=== PATIENT | male | born 1995 ===

== ENCOUNTER 2023-02-17 11:32 | Inpatient (IN) | payer OTHER, MEDICAID, SELFPAY ==
--- NOTE | ~2023-02-17 | US_ITS ---
EXAMINATION: US ABDOMEN LIMITED CLINICAL INFORMATION: Right upper quadrant abdominal pain. COMPARISON: None available. TECHNIQUE: Real-time imaging of the right upper quadrant abdominal viscera. FINDINGS: LIVER: Visualized portions unremarkable. GALLBLADDER: Multiple small dependent gallstones are seen without mural thickening or pericholecystic fluid. COMMON BILE DUCT: Normal in caliber measuring 0.4 cm in diameter. US/US abdomen limited IMPRESSION: Cholelithiasis without evidence for acute cholecystitis.
[2023-02-17 11:42] VITALS: BP 143/90; PULSE 70; RESP 16; TEMP 36.4; O2SAT 98; BMI 34.7
--- NOTE | 2023-02-17 11:44 | ED_ITS ---
HPI - General Adult General Chief complaint: Abdominal Pain Stated complaint: abd pain, gallbladder stones Time Seen by Provider: 02/17/23 16:04 Source: patient Mode of arrival: ambulatory Limitations: no limitations History of Present Illness HPI narrative: Patient high function autism otherwise healthy since last night 03:00 been having upper abdominal pain more on the right side without nausea vomiting able to eat anything since that time patient was seen at [facility] hospital was suppose to follow up as outpatient with surgeon when he saw the surgeon prior to arrival who does not take his insurance [place] [facility] [place] Patient still complaining of pain in the right upper abdomen with nausea. No fever no chills no history of similar pain in the past labs and ultrasound done before my evaluation shows gallstones without any signs of cholecystitis labs were stable patient is still complaining of pain and does not feel comfortable to go home Related Data Home Medications Medication Instructions Recorded Confirmed No Known Home Meds 02/17/23 02/17/23 Allergies Allergy/AdvReac Type Severity Reaction Status Date / Time citalopram [From CELEXA] Allergy Mild RASH Verified 02/17/23 11:46 Review of Systems Review of Systems: Yes all other systems are reviewed and are negative [facility] Social History Social History Alcohol intake: never Smoked in Last 30 Days: No Use of substances other than those prescribed or required for medical reasons: No Advance Directives: No Advance Directives Information Provided: No Physical Exam ED Vital Signs: Vital Signs - 24 hr 02/17/23 11:42 02/17/23 15:50 02/17/23 17:31 Temperature 97.6 F 98.4 F 99.4 F Pulse Rate 70 72 80 Respiratory Rate 16 18 20 Blood Pressure 143/90 H 137/80 129/74 Pulse Oximetry 98 99 100 Oxygen Delivery Method Room Air Room Air Room Air BMI result Body Mass Index 34.7 Appearance: Alert. Oriented X3. No acute distress. Eyes: No pallor or icterus ENT: Pharynx normal. Oral Mucosa moist Neck: Normal inspection. Neck supple. CVS: Normal heart rate and rhythm. Pulses normal. Respiratory: No respiratory distress. Equal air entry bilateral, no wheezing/rales/rhonchi Abdomen: Soft, tenderness right upper quadrant with guarding no rebound tenderness Bowel sounds are present, no mass palpable, no CVA tenderness Skin: Skin warm and dry. Normal skin color. Normal skin turgor. Neuro: Oriented X 3. No motor deficit. Course Course Course Narrative: This is an RME: Additional HPI, ROS, PE not included below will be deferred to primary provider. 27 year old male with a past medical history og gallstones and obesity presents with right upper quadrant pain described as intermittent stabbing Pain 7/10. Was told last night he had gallstones and needs his gallbladder out. Went to see surgeon today however they did not take his insurance. Patient not tolerating pain. Plan: pain meds, labs, will request records from [facility]. [facility]. Medications Administered Discontinued Medications Generic Name Dose Route Start Last Admin Trade Name Freq PRN Reason Stop Dose Admin Sodium Chloride 1,000 mls @ 999 mls/hr 02/17/23 12:00 02/17/23 16:27 Ns IV 02/17/23 13:00 Not Given .Q1H1M FLAQUITO Sodium Chloride 1,000 mls @ 999 mls/hr 02/17/23 16:24 02/17/23 17:45 Ns IV 02/17/23 17:24 Infused .Q1H1M ONE Infusion Ketorolac Tromethamine 30 mg 02/17/23 11:46 02/17/23 16:38 Ketorolac Tromethamine 15 Mg/Ml Vial IVPUSH 02/17/23 11:47 30 mg ONCE ONE Administration Ondansetron HCl 4 mg 02/17/23 16:24 02/17/23 16:38 Ondansetron Hcl 4 Mg/2 Ml Vial IVPUSH 02/17/23 16:25 4 mg ONCE ONE Administration Medical Decision Making Medical Decision Making [facility] Narrative: Patient with acute biliary colic not comfortable far past 12 hours workup showed gallstone with cholecystitis case discussed with , surgeon agreed will keep the patient the hospital for cholecystectomy in the a.m. for ongoing abdominal pain Lab Data [facility] Lab Attestation statement: I reviewed the patient's lab results. 02/17/23 12:22 02/17/23 12:22 Labs: Lab Results 02/17/23 02/17/23 Range/Units 12:22 12:22 WBC 8.2 (4.8-10.8) X10*3/uL RBC 5.90 H (4.60-5.80) X10*6/uL Hgb 12.5 L (14.0-18.0) g/dl Hct 41.7 L (42.0-52.0) % MCV 70.7 L (80.0-98.0) fL MCH 21.2 L (27.0-33.0) pg MCHC 30.0 L (31.0-36.0) g/dl RDW 14.4 (11.0-16.0) % Plt Count 214 (160-400) X10*3/uL MPV 12.2 (9.4-12.4) fL Immature Gran % (Auto) 0.5 H (0.0-0.4) % Neut % (Auto) 84.4 H (45-73) % Lymph % (Auto) 10.6 L (20-40) % Burnett % (Auto) 4.4 (2-11) % Eos % (Auto) 0.0 (0-4) % Baso % (Auto) 0.1 (0-2) % Lymph # (Auto) 0.9 L (1.2-4.9) X10*3/uL Burnett # (Auto) 0.4 (0.1-1.2) X10*3/uL Eos # (Auto) 0.0 (0.0-0.4) X10*3/uL Baso # (Auto) 0.0 (0.0-0.2) X10*3/uL Abs Immat Gran (auto) 0.04 H (0.00-0.03) X10*3/uL Absolute Neuts (auto) 6.9 (2.0-8.3) x10*3/uL Absolute Nucleated RBC 0.000 (0.0-0.012) X10*3/uL Nucleated RBC % (auto) 0.0 (0.0-0.2) /100WBC Sodium 139 (135-145) mmol/L Potassium 4.2 (3.3-5.1) mmol/L Chloride 106 (96-108) mmol/L Carbon Dioxide 26 (22-29) mmol/L Anion Gap 11 L (12-20) BUN 10 (9-16) mg/dL Creatinine 0.87 (0.5-1.4) mg/dL Estim Creat Clear Calc 170.7 Estimated GFR > 60 Random Glucose 123 H (60-115) mg/dL Calcium 9.6 (8.4-10.2) mg/dL Magnesium 2.0 (1.6-2.6) mg/dL Total Bilirubin 0.5 (0.0-1.0) mg/dL AST 30 (5-37) U/L ALT 62 H (0-40) U/L Alkaline Phosphatase 59 (39-117) U/L Total Protein 7.9 (6.5-8.0) g/dL Albumin 4.7 (3.5-5.0) g/dL Lipase 11 (8-78) U/L Radiology Impression Discussion of test interpretation with radiology: I have reviewed the rad iologist's reading. Radiologist Impression: CLINICAL INFORMATION: Right upper quadrant abdominal pain. COMPARISON: None available. TECHNIQUE: Real-time imaging of the right upper quadrant abdominal viscera. FINDINGS: LIVER: Visualized portions unremarkable. GALLBLADDER: Multiple small dependent gallstones are seen without mural thickening or pericholecystic fluid. COMMON BILE DUCT: Normal in caliber measuring 0.4 cm in diameter. US/US abdomen limited IMPRESSION: Cholelithiasis without evidence for acute cholecystitis. Discharge Plan Discharge Clinical Impression: Biliary colic Patient Disposition: Admitted As Inpatient
[2023-02-17 12:27] LABS: MANUAL DIFF FLAG NO
[2023-02-17 12:34] LABS: Basophils Percent Auto 0.1 % (0-2); Hematocrit 41.7 % (42.0-52.0); Hemoglobin 12.5 g/dl (14.0-18.0); Imm Gran Abs Auto 0.04 X10*3/uL (0.00-0.03); Imm Gran Pct Auto 0.5 % (0.0-0.4); Lymphocytes Absolute Auto 0.9 X10*3/uL (1.2-4.9); Lymphocytes Percent Auto 10.6 % (20-40); Mean Corpuscular Hemoglobin 21.2 pg (27.0-33.0); Mean Corpuscular Volume 70.7 fL (80.0-98.0); Mean Platelet Volume 12.2 fL (9.4-12.4); Monocytes Absolute Auto 0.4 X10*3/uL (0.1-1.2); Monocytes Percent Auto 4.4 % (2-11); Neutrophils Absolute Auto 6.9 x10*3/uL (2.0-8.3); Neutrophils Percent Auto 84.4 % (45-73); Platelet Count 214 X10*3/uL (160-400); Red Cell Distribution Width 14.4 % (11.0-16.0); White Blood Count 8.2 X10*3/uL (4.8-10.8)
[2023-02-17 12:43] LABS: Alanine Aminotransferase 62 U/L (0-40); Albumin Level 4.7 g/dL (3.5-5.0); Alkaline Phosphatase 59 U/L (39-117); Anion Gap 11 (12-20); Aspartate Amino Transferase 30 U/L (5-37); Bilirubin Total 0.5 mg/dL (0.0-1.0); Blood Urea Nitrogen 10 mg/dL (9-16); Calcium 9.6 mg/dL (8.4-10.2); Carbon Dioxide 26 mmol/L (22-29); Chloride 106 mmol/L (96-108); Creatinine Clr Calc Pharmacy 170.7; Estimated Glomerular Filt Rate > 60; Glucose Random 123 mg/dL (60-115); Lipase 11 U/L (8-78); Potassium 4.2 mmol/L (3.3-5.1); Sodium 139 mmol/L (135-145); Total Protein 7.9 g/dL (6.5-8.0)
[2023-02-17 15:50] VITALS: BP 137/80; PULSE 72; RESP 18; TEMP 36.9; O2SAT 99
--- NOTE | 2023-02-17 15:58 | PC.NURSE ---
pt just came in from waiting room to bed 13. eval by rn- medications ordered by PIT earlier today- awaiting primary eval from ed provider before administration.
[2023-02-17] MEDS: ondansetron HCL 4 MG/2 ML VIAL IVPUSH (16:38)
[2023-02-17] MEDS: Ketorolac Tromethamine 15 MG/ML VIAL 30 MG IVPUSH (16:38)
[2023-02-17] MEDS: 0.9 % Sodium Chloride 1,000 ML 999 ML IV (16:38)
--- NOTE | 2023-02-17 17:21 | PHA.MEDREC ---
Pharmacy Consult ? Medication Reconciliation Pharmacy has completed the medication reconciliation. Pt confirmed he is on no prescription or otc medications at home.
[2023-02-17 17:31] VITALS: BP 129/74; PULSE 80; RESP 20; TEMP 37.4; O2SAT 100
[2023-02-17 19:27] VITALS: BP 130/75; PULSE 79; RESP 18; TEMP 37.2; O2SAT 98
[2023-02-17] MEDS: ceFAZolin Sodium/Dextrose,Iso 2 GM/50 ML PIGGYBACK IV (20:16)
[2023-02-17] MEDS: Dextrose 5 % and 0.45 % NaCl 1,000 ML 100 ML IVCONT (20:18)
--- NOTE | 2023-02-17 20:27 | PC.NURSE ---
attempted to call nurse to nurse report x 1 @20:15. waiting for nurse to call back for report . pt resting comfortably on stretcher. iv fluids started. pt reports pain is now mild. no nausea or vomiting. mom at bedside will CTM
--- NOTE | 2023-02-17 20:51 | PC.NURSE ---
nurse to nurse report x 2 attempted @20:50. no answer. waiting for call back .
[2023-02-17 21:24] VITALS: BP 109/55; PULSE 79; RESP 20; TEMP 36.1; O2SAT 95
[2023-02-17 22:01] VITALS: BMI 40.4
[2023-02-18] VITALS (12 sets, daily range): BP systolic 99–154; BP diastolic 54–89; PULSE 73–92; RESP 16–20; TEMP 36.4–37.2; O2SAT 90–99
[2023-02-18] MEDS: ceFAZolin Sodium/Dextrose,Iso 2 GM/50 ML PIGGYBACK IV (03:00)
[2023-02-18] MEDS: Dextrose 5 % and 0.45 % NaCl 1,000 ML 100 ML IVCONT ×2 (05:48→15:59)
[2023-02-18 08:57] LABS: Appearance Urine Clear; Color Urine Yellow; Glucose Urine UA Negative (Negative); Leukocyte Esterase Urine Negative (Negative); Nitrite Urine Negative (Negative); PH 6.5 (5.0-9.0); Specific Gravity - Urine >= 1.030 (1.005-1.025); Urine Blood Negative (Negative); Urine Ketones Trace mg/dL (Negative); Urine Protein Trace mg/dL (Neg-Trace)
--- NOTE | 2023-02-18 09:16 | PM.HPGS ---
History of Present Illness History of Present Illness Date of Service: 02/18/23 Chief complaint: acute gb Narrative: Ed Deven Garcia is a 27 year old male with autism who developed RUQ abdominal pain on Tuesday night. It was sharp and stabbing in nature. He reports nausea without vomiting. He denies fever or chills at home. He presented to the ED at [facility] who did a work up and told him he had gallstones and sent him home with referral to see a surgeon. He saw the surgeon yesterday and was told they didn't take his insurance. Due to the persistence of the pain, he came to [facility] [place] ED. Work up included ABD US which showed gallstones without gallbladder wall thickening or pericholecystic fluid. CBC, BMP, LFTs WNL. He continued to complain of pain despite pain medication and did not feel comfortable going home. He was therefore admitted to the surgical service. This morning, he feels somewhat improved but still c/o mild RUQ pain. He denies previous episodes of similar pain. Review of Systems Constitutional: Constitutional: Denies chills and Denies fever(s) ENT: Denies dizziness Cardiovascular: Cardiovascular: Denies chest pain and Denies dyspnea Respiratory: Respiratory: Denies cough and Denies dyspnea Gastrointestinal: Gastrointestinal: Reports as per HPI, Denies constipation, Denies diarrhea, Reports nausea and Denies vomiting Genitourinary: Genitourinary: Denies dysuria Integumentary/Breasts: Skin/Breast: Denies rash and Denies jaundice Neurologic: Denies dizziness [facility] Social History Social History Household Members: None Housing: Apartment Do you presently have visiting nurse or other home services: No Alcohol intake: never Patient Tobacco Use Status: Never used Tobacco Smoked in Last 30 Days: No e-Cigarette/Vaping Use: Never Used Use of substances other than those prescribed or required for medical reasons: No Currently Displaying Signs/Symptoms of Drug Intoxication Withdrawal: No Have you been hit, kicked, punched, or otherwise hurt by someone within the past year? If so, by whom?: No Do you feel safe in your current relationship?: Yes Is there a partner from a previous relationship who is making you feel unsafe now?: No Are you made to feel afraid or neglected: No Advance Directives: No Advance Directives Information Provided: No Do you have thoughts of harming others: None Do you have a plan to hurt others: No Plan Recently lost weight without trying: No Eating poorly because of decreased appetite: No Nutrition Risks: No Nutritional Risk Poor oral hygiene: No Meds Allergies Allergy/AdvReac Type Severity Reaction Status Date / Time citalopram [From CELEXA] Allergy Mild RASH Verified 02/17/23 11:46 Active Medications: Current Medications Acetaminophen (Acetaminophen 325 Mg Tablet) 650 mg PO Q6H PRN PRN Reason: Pain, Mild (Pain Scale 1-3) Al Hydroxide/Mg Hydroxide (Magnesium Hydrox/Alum Hydrox 30 Ml Oral.Susp) 30 ml PO Q4H PRN PRN Reason: Heartburn/Nausea Hydromorphone HCl (Hydromorphone Hcl 1 Mg/Ml Syringe) 0.5 mg IVPUSH Q4H PRN; Protocol PRN Reason: Pain, Severe (Pain Scale 7-10) Dextrose/Sodium Chloride (D51/2ns) 1,000 mls @ 100 mls/hr IVCONT .Q10H [facility] Last Admin: 02/18/23 05:48 Dose: 100 mls/hr Cefazolin Sodium/Dextrose (Ancef) 2 gm in 50 mls @ 100 mls/hr IV Q8H [facility] Last Infusion: 02/18/23 03:55 Dose: Infused Magnesium Hydroxide (Milk Of Magnesia 30 Ml Oral.Susp) 30 ml PO DAILY PRN PRN Reason: Constipation Ondansetron HCl (Ondansetron Hcl 4 Mg/2 Ml Vial) 4 mg IVPUSH Q8H PRN PRN Reason: Nausea and Vomiting Sodium Chloride (0.9 % Sodium Chloride Flush 3 Ml Syringe) 3 ml IVFLUSH QSHIFT [facility] Last Admin: 02/18/23 07:50 Dose: Not Given Home Medications Medication Instructions Recorded Confirmed Last Taken Type No Known Home Meds 02/17/23 02/17/23 Unknown History Physical Exam Vital Signs: Vital Signs: Last Vital Signs Temp 98.5 F 02/18/23 07:49 Pulse 74 02/18/23 07:49 Resp 19 02/18/23 07:49 BP 112/62 02/18/23 07:49 Pulse Ox 97 02/18/23 07:49 O2 Del Method Room Air 02/18/23 07:49 BMI result Body Mass Index 40.4 Const: General: comfortable, no acute distress and alert Orientation/consciousness: patient oriented x3 Resp: Effort & Inspection: normal respiratory effort Cardio: Rate: regular rate GI: Inspection: No distended, Yes obesity (corpulent abdomen) and No scar Palpation (GI): Soft to palpation, Tenderness to palpation present (GI) in the RUQ and Ramirez's sign positive, no guarding and not rigid Percussion: Yes normal to percussion Skin: General skin exam: no rashes or lesions noted Neuro: General: patient oriented x3 and moves all extremities Extrem: General: Yes no clubbing, cyanosis or edema Results Results Labs: Short CBC 02/17/23 Range/Units 12:22 WBC 8.2 (4.8-10.8) X10*3/uL Hgb 12.5 L (14.0-18.0) g/dl Hct 41.7 L (42.0-52.0) % Plt Count 214 (160-400) X10*3/uL BMP 02/17/23 12:22 Sodium 139 Potassium 4.2 Chloride 106 Carbon Dioxide 26 BUN 10 Creatinine 0.87 Calcium 9.6 Liver Function 02/17/23 Range/Units 12:22 Total Bilirubin 0.5 (0.0-1.0) mg/dL AST 30 (5-37) U/L ALT 62 H (0-40) U/L Alkaline Phosphatase 59 (39-117) U/L Albumin 4.7 (3.5-5.0) g/dL Urine 02/18/23 Range/Units Unknown Urine Color Yellow Urine Appearance Clear Urine pH 6.5 (5.0-9.0) Ur Specific [place] >= 1.030 H (1.005-1.025) Urine Protein Trace (Neg-Trace) mg/dL Urine Glucose (UA) Negative (Negative) mg/dL Assessment and Plan (1) Biliary colic: Status: Acute Plan 27 year old male with c/o RUQ abdominal pain and nausea for 2 days with US demonstrating gallstones without signs of cholecystitis. He however has continued pain with RUQ tenderness and positive ramirez's sign which suggests early acute cholecystitis. Risks, benefits, alternatives of laparoscopic possible open cholecystectomy were reviewed with the patient including but not limited to bleeding, infection, numbness, pain, poor healing, injury to the liver, bowel or bile ducts, leak, retained stones and the patient wishes to proceed.? He was added onto the OR schedule for today.?All questions were answered. Time Spent With Patient Time: Total time managing care of this patient today ____ minutes. Quality Stroke Does the patient have a stroke diagnosis?: No VTE Prior VTE?: No VTE Risk Level:: Surgical - low VTE Device Contraindication: Treatment Not Indicated VTE Drug Contraindication: Treatment Not Tolerated Procedures Date of Service Date of Service: 02/18/23
--- NOTE | 2023-02-18 11:47 | HO.ANESPROP2 ---
HPI - Anesthesia Eval Consult details Narrative: for lachelle MORLEY Active Problems Active Problems: All Active Problems (Updated 02/18/23 @ 11:43 by Elisabet Blackburn RN) Biliary colic (Acute) Past Medical History Medical History Autism Family History Family history of problems with anesthesia: No Surgical History Surgical History Hx of wisdom tooth extraction History of Problems with Anesthesia: No Social History Social History Household Members: None Housing: Apartment Do you presently have visiting nurse or other home services: No Alcohol intake: never Patient Tobacco Use Status: Never used Tobacco Smoked in Last 30 Days: No e-Cigarette/Vaping Use: Never Used Use of substances other than those prescribed or required for medical reasons: No Currently Displaying Signs/Symptoms of Drug Intoxication Withdrawal: No Have you been hit, kicked, punched, or otherwise hurt by someone within the past year? If so, by whom?: No Do you feel safe in your current relationship?: Yes Is there a partner from a previous relationship who is making you feel unsafe now?: No Are you made to feel afraid or neglected: No Are you DNR?: No Advance Directives: No Advance Directives Information Provided: No Do you have thoughts of harming others: None Do you have a plan to hurt others: No Plan Recently lost weight without trying: No Eating poorly because of decreased appetite: No Nutrition Risks: No Nutritional Risk Poor oral hygiene: No Meds Allergies Allergy/AdvReac Type Severity Reaction Status Date / Time citalopram [From CELEXA] Allergy Mild RASH Verified 02/18/23 11:37 Active Medications: Current Medications Acetaminophen (Acetaminophen 325 Mg Tablet) 650 mg PO Q6H PRN PRN Reason: Pain, Mild (Pain Scale 1-3) Al Hydroxide/Mg Hydroxide (Magnesium Hydrox/Alum Hydrox 30 Ml Oral.Susp) 30 ml PO Q4H PRN PRN Reason: Heartburn/Nausea Hydromorphone HCl (Hydromorphone Hcl 1 Mg/Ml Syringe) 0.5 mg IVPUSH Q4H PRN; Protocol PRN Reason: Pain, Severe (Pain Scale 7-10) Dextrose/Sodium Chloride (D51/2ns) 1,000 mls @ 100 mls/hr IVCONT .Q10H [facility] Last Admin: 02/18/23 05:48 Dose: 100 mls/hr Cefazolin Sodium/Dextrose (Ancef) 2 gm in 50 mls @ 100 mls/hr IV Q8H [facility] Last Infusion: 02/18/23 03:55 Dose: Infused Magnesium Hydroxide (Milk Of Magnesia 30 Ml Oral.Susp) 30 ml PO DAILY PRN PRN Reason: Constipation Ondansetron HCl (Ondansetron Hcl 4 Mg/2 Ml Vial) 4 mg IVPUSH Q8H PRN PRN Reason: Nausea and Vomiting Sodium Chloride (0.9 % Sodium Chloride Flush 3 Ml Syringe) 3 ml IVFLUSH QSHIFT [facility] Last Admin: 02/18/23 07:50 Dose: Not Given Home Medications Medication Instructions Recorded Confirmed Last Taken Type No Known Home Meds 02/17/23 02/17/23 Unknown History Exam Exam Date and Time: February 18, 2023 1147 Height,Weight and Vital Signs: Height 6 ft Weight 135 kg Last Vital Signs Temp 98.0 F 02/18/23 11:44 Pulse 73 02/18/23 11:44 Resp 18 02/18/23 11:44 BP 116/84 02/18/23 11:44 Pulse Ox 98 02/18/23 11:44 O2 Del Method Room Air 02/18/23 11:44 Pertinent Lab Results Pertinent Lab Results: Laboratory Tests 02/17/23 02/17/23 02/18/23 12:22 12:22 Unknown WBC 8.2 RBC 5.90 H Hgb 12.5 L Hct 41.7 L MCV 70.7 L MCH 21.2 L MCHC 30.0 L RDW 14.4 Plt Count 214 MPV 12.2 Immature Gran % (Auto) 0.5 H Neut % (Auto) 84.4 H Lymph % (Auto) 10.6 L Jerome % (Auto) 4.4 Eos % (Auto) 0.0 Baso % (Auto) 0.1 Lymph # (Auto) 0.9 L Jerome # (Auto) 0.4 Eos # (Auto) 0.0 Baso # (Auto) 0.0 Abs Immat Gran (auto) 0.04 H Absolute Neuts (auto) 6.9 Absolute Nucleated RBC 0.000 Nucleated RBC % (auto) 0.0 Sodium 139 Potassium 4.2 Chloride 106 Carbon Dioxide 26 Anion Gap 11 L BUN 10 Creatinine 0.87 Estim Creat Clear Calc 170.7 Estimated GFR > 60 Random Glucose 123 H Calcium 9.6 Magnesium 2.0 Total Bilirubin 0.5 AST 30 ALT 62 H Alkaline Phosphatase 59 Total Protein 7.9 Albumin 4.7 Lipase 11 Urine Color Yellow Urine Appearance Clear Urine pH 6.5 Ur Specific [place] >= 1.030 H Urine Protein Trace Urine Glucose (UA) Negative Urine Ketones Trace Urine Blood Negative Urine Nitrite Negative Ur Leukocyte Esterase Negative Airway Mallampati Class: II TM Dist: >3cm Neck ROM: Full Heart: rrr Lungs: cta Assessment and Plan Assessment Anesthesia Assessment: Anesthesia Plan Discussed Final Anesthetic Review Family History of Problems with Anesthesia: No History of Problems with Anesthesia: No NPO: Yes ASA Class: II Final Preanesthetic Review: No Changes in Pt Med Stat, Meds/Allgs Chart Reviewed, Consent Obtained/Reviewed and Anes Risks/Benef Reviewed Patient Risk: Intermediate Procedure Risk: Intermediate Anesthetic Plan Anesthetic Plan: GA Disposition: Standard PACU (pt autistic , mom signed consent)
--- NOTE | 2023-02-18 12:11 | PC.NURSE ---
dr. vasquez updated that cefazolin 2 gm IV ordered by him was given on floor at 0355. new order placed for surgery per dr. vasquez.
--- NOTE | 2023-02-18 13:23 | W.PM.OPN ---
Operative Note Operative Note Date of Service: 02/18/23 Narrative: Preoperative diagnosis: [] Acute cholecystitis Postop diagnosis: [] Acute cholecystitis, hydrops of gallbladder Procedure [] laparoscopic cholecystectomy Surgeon: [] Rich Seo [employer] Specialist: [] kiara Acosta Type of Anesthesia: [] General Indication for surgery: [] Hydrops of gallbladder. Markedly edematous inflamed gallbladder with omental adhesions to it. Findings: [] Patient brought to the operating room, placed on the operating table in supine position, after adequate level of general anesthesia was induced, the patient's abdomen which was moderately corpulent was prepped and draped in usual sterile fashion. Using a supraumbilical curvilinear incision, Robles technique was used to insufflate the abdominal cavity to 15 mm of CO2. Upper midline and right subcostal ports were placed under direct laparoscopic view, and the patient was placed in reverse Trendelenburg position, and tilted to the left. The markedly turgid gallbladder was initially aspirated for decompression to allow graspers to grab it. Gallbladder was then grasped and retracted superiorly and laterally. Soft omental adhesions were swept off the gallbladder was hilum was approached. The cystic artery and cystic duct were each identified, circumferentially skeletonized and traced directly into the gallbladder and critical view obtained. Each was clipped proximally x2, distally x1, and transected. Gallbladder was then cauterized from the gallbladder fossa. Small posterior descending arterial branch well up into the gallbladder fossa was identified and clipped. Gallbladder once completely excised the gallbladder fossa was placed in an Endo-Catch bag, a retrieved through the umbilical port. Abdominal cavity was copiously irrigated, and secured hemostasis. Wounds were closed in the following manner; umbilical wound has fascia reapproximated using interrupted 0 Vicryl sutures. Skin wounds were closed using subcuticular 4-0 Vicryl sutures followed by Steri-Strips and sterile dressings. Wounds were infiltrated 0.5% Marcaine at completion. Sponge, needle, and instrument counts were reported to be correct. Patient tolerated the procedure well and emerged anesthesia stable condition. EBL minimal
--- NOTE | 2023-02-18 13:52 | PC.NURSE ---
preop vs written on preop nursing record.
[2023-02-18] MEDS: 0.9 % Sodium Chloride Flush 3 ML SYRINGE IVFLUSH (15:56)
--- NOTE | 2023-02-18 16:01 | MHC.CM.PN ---
CM MET WITH PT AND MOTHER/GUARDIAN AT BEDSIDE PT LIVES ALONE AND IS INDEPENDENT WITH SELF CARE HE HAS NO HOME SERVICES OR DME PTS MOTHER REPORTS SHE IS HIS LEGAL GUARDIAN SHE REPORTS SHE RECENTLY LEARNED HIS PCP. DR QUINONEZ NO LONGER TAKES THE PTS INSURANCE SHE WAS GIVEN EDUCATION ALONG WITH A LIST OF PCPS AND THE HELP [address] PT WILL LIKELY DC TODAY ONCE HE IS ABLE TO EAT AND VOID MOTHER WILL TRANSPORT
--- NOTE | 2023-02-21 10:00 | PM.DS ---
DS: Providers Provider Date of Service: 02/18/23 Date of admission: 02/17/23 19:04 Date of discharge: 02/18/23 Primary care physician: Lisa Physician Attending physician on admission: Cricket Villanueva Attending physician on discharge: Cricket Villanueva DS: Diagnosis Discharge Diagnosis (1) Biliary colic: Status: Acute DS: Summary Hospital Course Hospital Course: HPI AT ADMISSION: Ed Deven Garcia is a 27 year old male with autism who developed RUQ abdominal pain on Tuesday night. It was sharp and stabbing in nature. He reports nausea without vomiting. He denies fever or chills at home. He presented to the ED at [facility] who did a work up and told him he had gallstones and sent him home with referral to see a surgeon. He saw the surgeon yesterday and was told they didn't take his insurance. Due to the persistence of the pain, he came to [facility] ED. Work up included ABD US which showed gallstones without gallbladder wall thickening or pericholecystic fluid. CBC, BMP, LFTs WNL. He continued to complain of pain despite pain medication and did not feel comfortable going home. He was therefore admitted to the surgical service. This morning, he feels somewhat improved but still c/o mild RUQ pain. He denies previous episodes of similar pain. HOSPITAL COURSE: He was admitted to the surgical service for further treatment of the acute cholecystitis. He had continued pain the following morning and it was recommended to proceed with laparoscopic cholecystectomy, possible open. He and his mother agreed. He was added onto the OR schedule for that day. On 02/18/23, a laparoscopic cholecystectomy was performed by Dr. Villanueva without complication. He tolerated the procedure well. He felt well in recovery and was tolerating a diet with good pain control. He felt ready for discharge. He was discharged to home on 02/18/23 in stable condition. He is to follow up in the office in 1 week. Status at Discharge Functional status at discharge: independent ambulation Overall status at discharge: patient is progressing back to baseline Time Spent with Patient Time attestation: Total time managing care of this patient today ____ minutes. Discharge coordination time: Less than 30 minutes Quality: Safe Use of Opioids Does Pt have an Active Cancer Diagnosis on the Problem List?: No Quality: Stroke Does the patient have a stroke diagnosis?: No Physical Exam Vital Signs: Vital Signs: Last Vital Signs Temp 98.8 F 02/18/23 15:08 Pulse 78 02/18/23 15:08 Resp 18 02/18/23 15:08 BP 113/70 02/18/23 15:08 Pulse Ox 90 L 02/18/23 15:08 O2 Del Method Room Air 02/18/23 15:08 O2 Flow Rate 6 02/18/23 13:28 BMI result Body Mass Index 40.4 Const: General: comfortable, no acute distress and alert Orientation/consciousness: patient oriented x3 Resp: Effort & Inspection: normal respiratory effort GI: Inspection: No distended and Yes incision (dressings c/d/i) Palpation (GI): Soft to palpation, Tenderness to palpation present (GI) (mild, incisional), no guarding and not rigid Percussion: Yes normal to percussion Skin: General skin exam: no rashes or lesions noted Neuro: General: patient oriented x3 and moves all extremities DS: Data Data Completed and Pending Completed studies during hospitalization [Text1]: Procedures Resection of Gallbladder, Percutaneous Endoscopic Approach (02/17/23) Pending studies at discharge: Pending at discharge 02/18/23 12:55 Surgical [PTH] Routine Discharge Plan Discharge Anticipated Discharge Date/Time: 02/18/23 13:24 Patient Disposition: Home, Self-Care Discharge Diagnosis: Acute cholecystitis Referrals: Cricket Villanueva MD [Physician] - 1 Week Physician,Unknown J [Primary Care Provider] - 1 Week Discharge Medications: New hydrocodone-acetaminophen 5-325 mg tablet 1 tab PO Q4-6H PRN (Reason: pain) Qty: 30 0RF Rx Instructions: Partial Fill upon patient request. Discharge Orders: Discharge Order (Routine); Ordered 02/18/23 Ordered By: Cricket Villanueva Diet: Advance to usual diet Activity on Discharge: No heavy lifting Stand Alone Forms: Patient Portal Discharge page Activity Restrictions/Additional Instructions: Apply an ice pack for short intervals (20 minutes on, followed by at least 20 minutes off) for the first 2 days. Do not apply heat. Do not use creams, lotions, or topical antibiotics. These can cause infection or allergic reaction. Ok to shower 48 hours after your surgery. Remove dressings in 2 days and replace as needed. You have steri strips (small white cloth strips) covering your incision- these will fall off ~1 week. Follow up in office with Dr. Villanueva in 1 week. ([phone]) No heavy lifting (>10lbs) or strenuous activity! Call Your Doctor If: -Your temperature exceeds 101.5? F -You experience excessive pain or swelling -You have an unexpected reaction to medication -You have excessive bleeding -You experience continued vomiting/nausea -Your incision begins to separate -Your incision shows signs of infection such as increased redness, swelling, excessive pain, drainage (light blood or clear fluid is normal) or heat Care Plan Goals: Return to baseline health and resume normal activities following recovery period. Health Concerns: acute cholecystitis Plan of Treatment: s/p laparoscopic cholecystectomy F/u in office in 1 week Assessment: Doing well post op. Discharge Date/Time: 02/18/23 18:46
== END 2023-02-18 18:46 | disposition home or self-care (01) | DRG 418 ==
LOC: HO.ED 19:05 → HO.EDOVER 19:36 → HO.S3 19:40
PROVIDERS: Physician Assistant; Admitting Provider Surgery; Emergency Provider Internal Medicine; Visit Provider Surgery
PROC: 0FT44ZZ Resection of Gallbladder, Percutaneous Endoscopic Approach (ICD-10-PCS; CPT 47562; principal; 2023-02-18 13:30)
DX: K80.00 Calculus of gallbladder with acute cholecystitis without obstruction (principal); F84.0 Autistic disorder
CPT/HCPCS: 47562; 36415; 76705; 80053; 81003; 83690; 83735; 85025; 88304; 99285; J0131; J0690; J1100; J1885; J2250; J2405; J3010

== ENCOUNTER 2023-05-02 12:51 | Outpatient (AMB) | payer OTHER, MEDICAID, SELFPAY ==
--- NOTE | 2023-05-02 12:59 | MHC.PC.OV ---
Vital Signs 05/02/23 13:02 Height 6 ft Weight 278 lb 8 oz BMI 37.8 BP 120/60 Blood Pressure Location Lt brachial Position Sitting Pulse 81 Pulse Source Pulse Oximeter Pulse Oximetry (%) 96 Oxygen Delivery Method Room Air Intake Visit Reasons: NPV-requesting phy Intake Note: Patient is a new patient here to establish care for High Function Autism . Transferring care from Dr Lalo Burr( [facility]). Medical records have been requested and have not received. School Photographer Required: No Worship Director: Present Accompanied by: Mother Allergies citalopram [From CELEXA] Allergy (Mild, Verified 05/02/23 13:08) RASH Tobacco use date assessed: 05/02/23 Dental Screening Dental Screen Date: 05/02/23 Did you have a dental visit in the last 12 months?: No Did you have a dental problem in the last 6 months where you did not have access to dental care?: No Was dental information given to patient?: No HPI HPI Comments History of Present Illness Details [age] year male new patient presents today to establish care. Past medical history significant for autism presents today with his mother. Mother reports that he is I function on to skin usually handles all his medical appointments and visits himself however due to this being establishing care with a new provider and recent surgery she came to assist him today. Patient denies any chest pain, palpitations, shortness of breath and syncope. Denies any bowel or bladder issues. Patient reports eating and drinking well. Eye exam: Recommended every couple of years. [facility] Medical History Autism Surgical History History of cholecystectomy Hx of wisdom tooth extraction Family History (Updated 05/02/23 @ 13:19 by DULCE Brandon) Mother Asthma Father Diabetes HTN (hypertension) Cirrhosis Other Mental health disorder Social History (Updated 05/02/23 @ 13:19 by DULCE Brandon) Household Members: None Housing: Apartment Do you presently have visiting nurse or other home services: No Alcohol intake: never Patient Tobacco Use Status: Never used Tobacco e-Cigarette/Vaping Use: Never Used Second Hand Smoke Exposure: No service: No Current occupational status: employed Current occupation: [employer] Cognitive needs: No Hearing needs: No Vision needs: Yes (Glasses) Questionnaire PHQ-9 Over the last 2 weeks, how often have you been bothered by any of the following problems? 1. Little interest or pleasure in doing things: not at all 2. Feeling down, depressed, or hopeless: not at all 3. Trouble falling or staying asleep, or sleeping too much: not at all 4. Feeling tired or having little energy: not at all 5. Poor appetite or overeating: not at all 6. Feeling bad about yourself - or that you are a failure or have let yourself or your family down: not at all 7. Trouble concentrating on things, such as reading the newspaper or watching television: not at all 8. Moving or speaking so slowly that other people could have noticed. Or the opposite - being so fidgety or restless that you have been moving around a lot more than usual: not at all 9. Thoughts that you would be better off or of hurting yourself in some way: not at all Total score: 0 Depression Screening Interpretation: Negative 04920 - PHQ-9 Billing: Yes Source: Developed by Drs. Radu Byrd, Viktoria Carr, Robin Prater and colleagues, with an educational mo from [facility]. Thrive Questionnaire Date Thrive assessed: 05/02/23 I am a: Patient What is your living situation today?: I have a steady place to live Within the past 12 months, did the food you bought not last and you didn't have the money to get more?: Never true Within the past 12 months, did you worry whether your food would run out before you got money to buy more?: Never true Do you have trouble paying for medicines?: No Do you have trouble getting transportation to medical appointments?: No Do you have trouble paying your heating and electricity bill?: No Do you have trouble taking care of your child, family member or friend?: No Do you have trouble with day-to-day activities such as bathing, preparing meals, shopping, managing finances, etc.?: No Are you currently unemployed and looking for a job?: No Are you interested in more education?: No Currently or been in a relationship where the following occur: no concerns reported AUDIT C Alcohol Use Questionnaire (AUDIT-C) 1. How often do you have a drink containing alcohol?: Never Total Score: 0 TAINA-7 AMB Questionnaire TAINA-7 Date TAINA - 7 assessed: 05/02/23 Feeling nervous, anxious, or on edge: 0 = Not at all Not being able to stop or control worryin = Not at all Worrying too much about different things: 0 = Not at all Trouble relaxin = Not at all Being so restless that it is hard to sit still: 0 = Not at all Becoming easily annoyed or irritable: 0 = Not at all Feeling afraid as if something awful might happen: 0 = Not at all Total TAINA-7 score (0-4 normal; 5-9 mild; 10-14 moderate; 15-21 severe): 0 Source: Developed by Drs. Radu Byrd, Viktoria Carr, Robin Prater and colleagues, with an educational mo from [facility]. TAINA-7 Assessment Billing TAINA-7 Assessment Tool: TAINA-7 Assessment 73670 Review of Systems Const Denies chills, Denies fatigue, Denies fever(s) and Denies poor appetite Eyes Denies no additional complaints ENT Reports Normal hearing present Card Denies chest pain, Denies syncope, Denies rapid heart rate and Denies dyspnea Resp Denies cough and Denies dyspnea GI Denies change in stool character, Denies constipation, Denies diarrhea, Denies nausea and Denies vomiting Denies dysuria, Denies urinary frequency and Denies urinary urgency Neuro Reports Normal hearing present, Denies confusion and Denies syncope Psych Denies confusion Endo Denies fatigue Physical exam (Primary Care) Vital Signs: Last Vital Signs Pulse 81 05/02/23 13:02 BP 120/60 05/02/23 13:02 Pulse Ox 96 05/02/23 13:02 Oxygen Delivery Method Room Air 05/02/23 13:02 BMI result Body Mass Index 37.8 Tobacco/Smoking Status: Tobacco use Status Tobacco use date assessed 05/02/23 05/02/23 13:13 Patient Tobacco Use Status Never used Tobacco 05/02/23 13:13 e-Cigarette/Vaping Use Never Used 05/02/23 13:13 PHQ-9: PHQ-9 Score PHQ-9: Total score 0 05/02/23 13:13 Depression Screening Interpretation: Negative Thrive Assessment: Date of Thrive Assessment Date Thrive assessed 05/02/23 05/02/23 13:13 Currently or been in a relationship where the following occur: no concerns reported Const General: No confusion Orientation/consciousness: No confusion HENMT Head: Yes normocephalic and Yes atraumatic Ears: external ears normal and TM's normal bilaterally General nose exam: Normal external nose present and Normal nasal mucous membranes and turbinates present Face and sinus: Yes normal facial exam and Yes sinuses nontender Mouth: moist mucous membranes Throat: Yes tonsils normal Eyes Conjunctivae: conjunctivae normal Sclerae: sclerae normal Pupils: Equal, round and reactive pupils present and Pupils normal by confrontation EOM: EOMs intact bilaterally Direct Ophthalmoscopy: normal light reflex Neck Neck: Yes no lymphadenopathy and Yes supple Thyroid: Thyroid normal Chest Chest palpation & inspection: normal inspection of the chest Resp Effort & Inspection: normal respiratory effort Auscultation: clear to auscultation bilaterally, no crackles, no rhonchi and no wheezes Cardio Rate: regular rate Rhythm: regular rhythm Peripheral pulses: radial pulses present and dorsalis pedis present GI Inspection: Yes normal to inspection Palpation (GI): Soft to palpation, nontender and No hepatosplenomegaly present Auscultation: normoactive bowel sounds Skin General skin exam: no rashes or lesions noted Neuro General: No confusion Cranial nerves: Yes Equal, round and reactive pupils present and Yes Normal hearing present Cognition (Neuro): normal cognition Gait exam (Neuro): Normal gait present Motor exam (neuro): 5/5 motor strength present throughout Deep tendon reflexes (DTR's): Right brachioradialis reflex intensity grade: 2+, Left brachioradialis reflex intensity grade: 2+, Right patellar reflex intensity grade: 2+ and Left patellar reflex intensity grade: 2+ Extrem General: No edema Assessment and Plan Assessment & Plan (1) Physical exam, annual: Code(s): Z00.00 - Encounter for general adult medical examination without abnormal findings Plan Follow-up in 1 year sooner needed. Orders: Orders TSH reflex Free T4 Today Z13.29 - Encounter for screening for other suspected endocrine disorder Comprehensive Met. Panel Today Z13.1 - Encounter for screening for diabetes mellitus Coding Level of Care Code New Pt Prev Care 18-39yr([id number] Diagnoses Physical exam, annual Z00.00 Additional Codes TAINA-7 Assessment Billing - TAINA-7 Assessment Tool: TAINA-7 Assessment [id number] ([id number])
[2023-05-02 13:02] VITALS: BP 120/60; PULSE 81; O2SAT 96; BMI 37.8
== END 2023-05-02 13:43 | disposition home or self-care (01) ==
PROVIDERS: Visit Provider Nurse Practitioner Family
DX: Z00.00 Encounter for general adult medical examination without abnormal findings (principal)
CPT/HCPCS: 99385

== ENCOUNTER 2023-05-02 13:33 | Outpatient (REF) | payer OTHER, MEDICAID, SELFPAY ==
[2023-05-02 15:36] LABS: Alanine Aminotransferase 52 U/L (0-40); Albumin Level 4.5 g/dL (3.5-5.0); Alkaline Phosphatase 62 U/L (39-117); Anion Gap 11 (12-20); Aspartate Amino Transferase 25 U/L (5-37); Bilirubin Total 0.3 mg/dL (0.0-1.0); Blood Urea Nitrogen 12 mg/dL (9-16); Calcium 9.8 mg/dL (8.4-10.2); Carbon Dioxide 26 mmol/L (22-29); Chloride 108 mmol/L (96-108); Estimated Glomerular Filt Rate > 60; Glucose Random 82 mg/dL (60-115); Potassium 4.2 mmol/L (3.3-5.1); Sodium 141 mmol/L (135-145); Total Protein 7.2 g/dL (6.5-8.0)
[2023-05-02 15:38] LABS: TSH reflex Free T4 2.64 uIU/mL (0.32-4.0)
== END 2023-05-02 13:34 | disposition home or self-care (01) ==
LOC: HO.LAB 13:33
PROVIDERS: PCP Nurse Practitioner Family; Visit Provider Nurse Practitioner Family
DX: Z13.29 Encounter for screening for other suspected endocrine disorder (principal); Z13.1 Encounter for screening for diabetes mellitus; Z79.899 Other long term (current) drug therapy
CPT/HCPCS: 36415; 80053; 84443

== ENCOUNTER 2023-06-03 10:57 | Outpatient (REF) | payer OTHER, MEDICAID, SELFPAY ==
[2023-06-03 13:22] LABS: Alanine Aminotransferase 61 U/L (0-40); Albumin Level 4.5 g/dL (3.5-5.0); Alkaline Phosphatase 68 U/L (39-117); Aspartate Amino Transferase 30 U/L (5-37); Bilirubin Direct 0.1 mg/dL (0.0-0.5); Bilirubin Total 0.3 mg/dL (0.0-1.0); Total Protein 7.3 g/dL (6.5-8.0)
== END 2023-06-03 10:58 | disposition home or self-care (01) ==
LOC: HO.LAB 10:57
PROVIDERS: PCP Nurse Practitioner Family; Visit Provider Nurse Practitioner Family
DX: R74.01 Elevation of levels of liver transaminase levels (principal)
CPT/HCPCS: 36415; 80076